=== PATIENT | male | born 1985 | race American Indian/Alaskan Native ===

== ENCOUNTER 2019-06-13 09:44 | Emergency (ER) | payer OTHER ==
[2019-06-13 09:52] VITALS: BP 126/92
--- NOTE | 2019-06-13 10:58 | Emergency Department Report ---
Chief Complaint: Nausea/Vomiting/Diarrhea Stated Complaint: STOMACH PAIN, DIRRHEA Time Seen by Provider: 06/13/19 10:20 - HPI History of Present Illness: This is a 33-year-old male with no prior medical history presents stating that he has been having vomiting and diarrhea since last week Thursday. Patient states that symptoms have resolved now. Patient states he thinks he had some unusual food that caused him some mild discomfort. Patient states that he is only having diarrhea once a day otherwise no other symptoms. He denies fever/chills/nausea vomiting/chest pain/shortness of breath at this time. Patient states that he was returning to work and was told that he cannot come back to work until he has a work excuse. - ROS Review of Systems: As noted in HPI - Exam Vital Signs: Vital Signs 06/13/19 09:50 Temperature 98.1 F Pulse Rate 91 H Respiratory 16 Rate Blood Pressure 126/92 O2 Sat by Pulse 96 Oximetry Physical Exam: GENERAL: Alert and oriented x3, no apparent distress, Normal Gait, atraumatic. ABDOMEN: No organomegaly was noted,Positive bowel sounds, soft, and non- distended. . Nontender to palpation on all Quadrants, NO CVA tenderness. SKIN: Warm and dry, No lesions, No ulceration or induration present. MSE screening note: Focused history and physical exam performed. Due to findings the following was ordered: ED Medical Decision Making - Medical Decision Making 33-year-old male presents to ED with resolving food poisoning Patient presents for work note to return to work. Vital signs are normal patient is in no acute distress. Patient is in no discomfort throughout ED stay. Patient screened out told to follow-up with primary care physician. ED Disposition for MSE Clinical Impression: Acute diarrhea Disposition: Z- MED SCREENING EXAM-LEFT Is pt being admited?: No Does the pt Need Aspirin: No Condition: Stable Instructions: Food Poisoning (ED), Gastroenteritis (ED) Additional Instructions: Make sure to follow up with the primary care physician as discussed. If you have any worsening symptoms or develop new symptoms please return to ED immediately. [facility]Outside[facility] - 3-[facility] Days [facility] [Outside] - 3-5 Days Forms: Work/School Release Form(ED) Time of Disposition: 10:55
== END 2019-06-13 11:01 | disposition left against medical advice (07) ==
LOC: ED 09:44
DX: R19.7 Diarrhea, unspecified (principal); R11.10 Vomiting, unspecified
CPT/HCPCS: 99281